=== PATIENT | female | born 1955 | race Caucasian/White ===

== ENCOUNTER → 2017-03-11 | Outpatient (CLI) | payer BC ==
--- NOTE | 2017-03-11 13:12 | RAD ---
DATE: March 11, 2017 EXAM: DIGITAL SCREEN BILAT W/CAD HISTORY: Routine screening. COMPARISON: September 22, 2014. September 21, 2013. July 24, 2011. TECHNIQUE: 2D digital CC and MLO views of each breast were obtained. This study was interpreted with the benefit of Computerized Aided Detection (CAD). FINDINGS: The breast parenchyma demonstrates scattered fibroglandular densities, category B. There is no worrisome mass or area of architectural distortion. Scattered benign-appearing calcifications again are noted. IMPRESSION: Stable mammogram with benign findings. BI-RADS CATEGORY: 2 BENIGN FINDING RECOMMENDED FOLLOW-UP: 12M 12 MONTH FOLLOW-UP PQRS compliance statement: Patient information was entered into a reminder system with a target due date for the next mammogram. Mammography is a sensitive method for finding small breast cancers, but it does not detect them all and is not a substitute for careful clinical examination. A negative mammogram does not negate a clinically suspicious finding and should not result in delay in biopsying a clinically suspicious abnormality. "Our facility is accredited by the [employer] Mammography Program."
== END | disposition home or self-care (01) ==
LOC: MAMMO 10:22
PROVIDERS: ATTEND Nurse Practitioner Family
DX: Z12.31 Encounter for screening mammogram for malignant neoplasm of breast (principal)
CPT/HCPCS: G0202; 77067

== ENCOUNTER → 2018-03-02 | Outpatient (CLI) | payer BC ==
--- NOTE | 2018-03-02 11:58 | RAD ---
MR#: [id number] Date of Study: 03/02/2018 Ordering Physician: ZAKIA NICE, Referring Physician: ASHU BABIN Tech: RT It[place] (R) (N) APPROVED REPORT Test Type: Exercise Stress Nurse/Tech: Deirdre Dean R.N. Test Indications: cad, back pain Cardiac History: htn, dm, Medications: see ehr Medical History: see ehr Resting ECG: sr Resting Heart Rate: 74 bpm Resting Blood Pressure: 135/78mmHg Pretest Chest Pain: No chest pain Nurse/Tech Notes lungs cta, heart tones regular, good radial pulse Consent: The procedure was explained to the patient in lay terms. Informed consent was witnessed. Juve eout was entered into [employer]. History and Stress Test performed by RT Saulo (Robina) (N) Stress Symptoms No chest pain or symptoms. POST EXERCISE Reason for Termination: Reached target heart rate Target HR: Yes Max HR: 141 bpm 89% of Maximum Predicted HR: 159 bpm Exercise duration: 7:30 min:sec, 3 Stage Exercise capacity: 10.0METs Max Blood Pressure: 164/82mmHg Blood Pressure response to exercise: Normal blood pressure response during stress. Heart Rate response to exercise: normal Chest Pain: No. Arrhythmia: No. ST Change: No. No significant EKG change INTERPRETATION Stress EKG Conclusion: Negative for ischemia. Imaging Protocol IMAGE PROTOCOL: Rest Tc-99m/stress Tc-99m 1 day Rest: Stress: Viability: Radiopharm.Tc99m RxfonhwhmPg67i Sestamibi Ylzr57gBm 35.1mCi Duration 13min. 13min. Img Date 03/02/2018 03/02/2018 Inj-Img [id number]. 60min. Rest Admin Site:IV - Right AntecubitalAdministrator:RT Italia (Robina)(N) Stress Admin Site: IV - Right AntecubitalAdministrator: RT Micheal Vernon)(N) STRESS DATA End Diast. Vol.40.0mlLVEDV index BSA23.0ml End Syst. Vol.5.0mlLVESV index BSA3.0ml Myocardial Mass89.0gEject. Xdhntjue27.0% Stress Scores Regional WT0.00Summed WT0.00 Regional WM0.00Summed WM0.00 The rest and stress images show normal perfusion, normal contraction and thickening. LV Perf. Quant 17 Seg. SSS0.00 17 Seg. SRS0.00 17 Seg. SDS0.00 Stress Defect Extent (% LAD)0.00Rest Defect Extent (% LAD)0.00Rev. Defect Extent (% LAD)0.00 Stress Defect Extent (% LCX) 0.00Rest Defect Extent (% LCX)0.00Rev. Defect Extent (% LCX)0.00 Stress Defect Extent (% RCA)0.00Rest Defect Extent (% RCA)0.00Rev. Defect Extent (% RCA)0.00 Stress Defect Extent (% AUGIE)0.00Rest Defect Extent (% AUGIE)0.00Rev. Defect Extent (% AUGIE)0.00 Other Information Quality:Good Risk Assessment: Low Risk Conclusion 1. No evidence of EKG changes with stress testing. 2. Normal perfusion at stress/rest. 3. Low risk study. 4. EF > 60%. Signed by : Hollis Thompson, Electronically Approved : 03/02/2018 11:57:36
== END | disposition home or self-care (01) ==
LOC: NM 08:01
PROVIDERS: ATTEND Internal Medicine Cardiovascular Disease
DX: I25.10 Atherosclerotic heart disease of native coronary artery without angina pectoris (principal); I10 Essential (primary) hypertension; E11.9 Type 2 diabetes mellitus without complications
CPT/HCPCS: 78452; 93017; 96374; 96376; A9500

== ENCOUNTER → 2018-09-29 | Outpatient (CLI) | payer BC ==
--- NOTE | 2018-09-30 10:03 | RAD ---
DATE: 09/29/2018 EXAM: MAMMO ELOISE SCREENING BILATERAL HISTORY: Routine screening COMPARISON: 07/24/2011, 09/21/2013, 09/22/2014 and 03/11/2017 mammographic This study was interpreted with the benefit of Computerized Aided Detection (CAD). Breast Density: SCATTERED The breast parenchyma shows scattered fibroglandular densities. Breast parenchyma level B. FINDINGS: Benign calcifications are present. Multiple very small masses bilaterally are present and well demarcated. These are seen Osteosynthesis imaging. No dominant mass. No distortion. IMPRESSION: No suspicious finding. BI-RADS CATEGORY: 1 NEGATIVE RECOMMENDED FOLLOW-UP: 12M 12 MONTH FOLLOW-UP PQRS compliance statement: Patient information was entered into a reminder system with a target due date in one year for the next mammogram. Mammography is a sensitive method for finding small breast cancers, but it does not detect them all and is not a substitute for careful clinical examination. A negative mammogram does not negate a clinically suspicious finding and should not result in delay in biopsying a clinically suspicious abnormality. "Our facility is accredited by the [employer] Mammography Program."
== END | disposition home or self-care (01) ==
LOC: MAMMO 12:39
PROVIDERS: ATTEND Nurse Practitioner Family
DX: Z12.31 Encounter for screening mammogram for malignant neoplasm of breast (principal); N64.89 Other specified disorders of breast; N63.20 Unspecified lump in the left breast, unspecified quadrant; N63.10 Unspecified lump in the right breast, unspecified quadrant
CPT/HCPCS: 77063; 77067

== ENCOUNTER → 2018-10-22 | Outpatient (CLI) | payer BC ==
--- NOTE | 2018-10-22 17:30 | RAD ---
Examination: 3 views of the left shoulder HISTORY: History of left shoulder pain COMPARISON: None available FINDINGS: The humerus head is within the glenoid. There is no acute fracture or dislocation identified. Mild degenerative changes acromioclavicular joint. IMPRESSION: No acute osseous findings. Electronically signed by: Brian Ramsey MD (10/22/2018 5:27 PM) [id number]
== END | disposition home or self-care (01) ==
LOC: RAD 10:58
PROVIDERS: ATTEND Nurse Practitioner Family
DX: M19.012 Primary osteoarthritis, left shoulder (principal)
CPT/HCPCS: 73030

== ENCOUNTER → 2019-10-25 | Outpatient (CLI) | payer BC ==
--- NOTE | 2019-10-25 14:25 | RAD ---
DATE: 10/25/2019 1:46 PM EXAM: DIGITAL SCREEN BILAT W/CAD HISTORY: Screening COMPARISON: 09/29/2018 Bilateral CC and MLO views of the breasts were performed. Bilateral breast tomosynthesis was performed in CC and MLO projections. This study was interpreted with the benefit of Computerized Aided Detection (CAD). FINDINGS: Breast Density: SCATTERED The breast parenchyma shows scattered fibroglandular densities. Breast parenchyma level B No suspicious masses, microcalcifications or architectural distortion is present to suggest malignancy in either breast. The visualized axillae are unremarkable. IMPRESSION: No mammographic evidence of malignancy. BI-RADS CATEGORY: 1 NEGATIVE RECOMMENDED FOLLOW-UP: 12M 12 MONTH FOLLOW-UP Annual screening mammography is recommended, unless clinically indicated sooner based on symptoms or change in physical exam. PQRS compliance statement: Patient information was entered into a reminder system with a target due date 10/25/2020 for the next mammogram. Mammography is a sensitive method for finding small breast cancers, but it does not detect them all and is not a substitute for careful clinical examination. A negative mammogram does not negate a clinically suspicious finding and should not result in delay in biopsying a clinically suspicious abnormality. "Our facility is accredited by the [employer] Mammography Program."
== END | disposition home or self-care (01) ==
LOC: MAMMO 13:39
PROVIDERS: ATTEND Nurse Practitioner Family
DX: Z12.31 Encounter for screening mammogram for malignant neoplasm of breast (principal)
CPT/HCPCS: 77067

== ENCOUNTER → 2019-11-08 | Outpatient (CLI) | payer BC ==
--- NOTE | 2019-11-08 15:40 | RAD ---
INDICATION: Reason: Dizzy spells; HTN; Diabetic; Left Arm weakness / Spl. Instructions: / History: COMPARISON: None. TECHNIQUE: Color, grayscale and doppler ultrasound images obtained of the carotid system bilaterally. Percent stenosis is estimated using criteria that correlates with NASCET methodology. FINDINGS: Peak systolic velocities are as follows in cm/s: Right Carotid System: CCA: 59 ICA: 107 ICA/CCA Ratio 1.6 Left Carotid System: CCA: 58 ICA: 96 ICA/CCA Ratio 1.4 Vertebral arteries are antegrade bilaterally. Multifocal plaque. Left external carotid artery is 222 and right external carotid artery is 97 cm/S. IMPRESSION: * No hemodynamically significant stenosis of the internal carotid arteries bilaterally. * Elevated velocity at left external carotid artery which could be from a region of narrowing. Electronically signed by: Wilfredo Espinal MD (11/08/2019 3:37 PM) [id number]
== END | disposition home or self-care (01) ==
LOC: US 15:17
PROVIDERS: ATTEND Family Medicine
DX: I65.23 Occlusion and stenosis of bilateral carotid arteries (principal); R42 Dizziness and giddiness
CPT/HCPCS: 93880

== ENCOUNTER → 2020-07-10 | Outpatient (CLI) | payer BC ==
[~2020-07-10] MED LIST: HYDR12.575 PO; LISI-379 PO; NIFEDIPINE
--- NOTE | 2020-07-10 12:33 | RAD ---
MR#: [id number] Date of Study: 07/10/2020 Ordering Physician: ZAKIA CARPENTER, Referring Physician: ASHU BABIN Tech: RT Saulo (R) (N) APPROVED REPORT Test Type: Exercise Stress Nurse/Tech: Sarita Maya RN Test Indications: CAD Cardiac History: family history, x-smoker, DM Medications: See Electronic Medical Record Medical History: See Electronic Medical Record Resting ECG: SR Resting Heart Rate: 92 bpm Resting Blood Pressure: 137/67mmHg Pretest Chest Pain: None Nurse/Tech Notes Lungs CTA, S1S2 Consent: The procedure was explained to the patient in lay terms. Informed consent was witnessed. Juve eout was entered into [facility]. History and Stress Test performed by RT Saulo (R) (N) Stress Symptoms No chest pain or symptoms. POST EXERCISE Reason for Termination: Reached target heart rate Target HR: Yes Max HR: 142 bpm 90% of Maximum Predicted HR: 157 bpm Exercise duration: 6:04 min:sec, 3 Stage Max Blood Pressure: 148/72mmHg Blood Pressure response to exercise: Normal blood pressure response during stress. Heart Rate response to exercise: Normal response Chest Pain: No. Arrhythmia: No. ST Change: No. INTERPRETATION Stress EKG Conclusion: The resting EKG showed a sinus rhythm with mild nonspecific T wave changes. The stress EKG showed no significant changes from baseline. No EKG evidence of stress-induced ischemia. Imaging Protocol IMAGE PROTOCOL: Rest Tc-99m/stress Tc-99m 1 day Rest: Stress: Viability: Radiopharm.Tc99m XyxrtnxqyCz09e Sestamibi Dose10.2mCi 31mCi Duration 13min. 13min. Img Date 07/10/2020 07/10/2020 Inj-Img [id number]. 60min. Rest Admin Site:IV - Right HandAdministrator:RT Italia (R)(N) Stress Admin Site: IV - Right HandAdministrator: KATHARINA Lopez, ARRT (R)(N) STRESS DATA End Diast. Vol.50.0mlLVEDV index BSA29.0ml End Syst. Vol.4.0mlLVESV index BSA2.0ml Myocardial Mass93.0gEject. Xfthpiff68.0% Stress Scores Regional WT0.00Summed WT3.00 Regional WM0.00Summed WM1.00 LV Perfusion The stress scans showed no significant defects. The rest scans showed no significant defects. Nuclear imaging shows no reversible ischemia or infarct. Wall Motion Left ventricular systolic function is normal with no regional wall motion abnormalities and an ejecti on fraction of greater than 70%. LV Perf. Quant 17 Seg. SSS0.00 17 Seg. SRS1.00 17 Seg. SDS0.00 Stress Defect Extent (% LAD)0.00Rest Defect Extent (% LAD)5.60Rev. Defect Extent (% LAD)0.00 Stress Defect Extent (% LCX) 0.00Rest Defect Extent (% LCX)0.00Rev. Defect Extent (% LCX)0.00 Stress Defect Extent (% RCA)0.00Rest Defect Extent (% RCA)0.00Rev. Defect Extent (% RCA)0.00 Stress Defect Extent (% AUGIE)0.00Rest Defect Extent (% AUGIE)2.20Rev. Defect Extent (% AUGIE)0.00 Conclusion 1. Good exercise tolerance with the patient walking for 6 minutes and 4 seconds on a Jamel protocol. 2. No reported chest pain with exertion. 3. No EKG evidence of stress-induced ischemia. 4. Nuclear imaging shows no reversible ischemia or infarct. 5. Normal left ventricular systolic function with an ejection fraction of greater than 70%. 6. Low risk treadmill nuclear stress test. Signed by : Zakia Carpenter MD Electronically Approved : 07/10/2020 12:33:14
== END ==
LOC: NM 09:39
PROVIDERS: ATTEND Internal Medicine Cardiovascular Disease
DX: I25.10 Atherosclerotic heart disease of native coronary artery without angina pectoris (principal); E11.9 Type 2 diabetes mellitus without complications; Z87.891 Personal history of nicotine dependence
CPT/HCPCS: 78452; 93017; A9500

== ENCOUNTER → 2020-10-24 | Outpatient (CLI) | payer BC ==
--- NOTE | 2020-10-24 15:28 | RAD ---
PROCEDURE: MG BILAT SCREEN+ELOISE HISTORY: The patient is 64 years old and is seen for Reason: SCREENING MAMMOGRAM / Spl. Instructions: LAST COVID SHOT 06/17/20 RIGHT ARM / History: . COMPARISON: September 29, 2018 and October 25, 2019 TECHNIQUE: CC and MLO views of both breasts were obtained. Images were processed by the [employer] computer-aided detection system. DENSITY: There are scattered fibroglandular densities. FINDINGS: Small bilateral well-circumscribed masses within the inferior breasts, unchanged compared to thousand 19. Benign-appearing calcifications bilaterally. IMPRESSION: Negative. No evidence of malignancy. Recommend annual screening mammograms per [employer] guidelines. She will be due in one year. BI-RADS category 2 Benign Patient entered into a reminder system for annual screening mammogram. Electronically signed by: Scott Moralez DO (10/24/2020 3:26 PM) [id number]
== END ==
LOC: MAMMO 13:46
PROVIDERS: ATTEND Nurse Practitioner Family
DX: Z12.31 Encounter for screening mammogram for malignant neoplasm of breast (principal)
CPT/HCPCS: 77063; 77067